=== PATIENT | female | born 1935 | race Caucasian/White ===

== ENCOUNTER 2020-08-22 17:38 | Emergency (ER) | payer MEDICARE ==
[~2020-08-22] VITALS: Ht 160 cm; Wt 60.0 kg
--- NOTE | 2020-08-22 18:00 | NUR ---
LAB AT BS, XR WAITING.
[2020-08-22 18:20] LABS: BASOPHILS % (AUTO) 1 % (0-1); EOSINOPHILS % (AUTO) 2 % (1-7); LYMPHOCYTES % (AUTO) 36 % (22-44); MEAN CORPUSCULAR HEMOGLOBIN 31.7 pg (27.0-34.8); MEAN CORPUSCULAR HGB CONC 33.7 g/dL (32.4-35.8); MEAN PLATELET VOLUME 10.5 fL (7.4-10.4); MONOCYTES % (AUTO) 9 % (2-9); NEUTROPHILS % (AUTO) 52 % (42-75); PLATELET COUNT 169 x10^3/uL (130-400); RED BLOOD COUNT 4.13 x10^6/uL (3.82-5.3); RED CELL DISTRIBUTION WIDTH 12.5 % (9.6-15.2)
--- NOTE | 2020-08-22 18:20 | NUR ---
TASK RN: PT TO ROOM 31 W/ C/O CP AND FATIGUE X 6 WEEKS. PT STATES "SOME POLICE PEOPLE CAME TO MY HOUSE TO CHECK ON ME AND DECIDED I NEEDED TO BE SEEN". PT LIVES HOME ALONE. DENIES SI/HI. PT STATES "I'VE LEARNED TO LIVE WITH THE PAIN". PT RESTING ON GURNEY. NADN. MONITORS IN PLACE. VSS.
[2020-08-22 18:21] LABS: MD NO
[2020-08-22 18:24] LABS: ALANINE AMINOTRANSFERASE 82 U/L (12-78); ALBUMIN 3.7 g/dL (3.4-5.0); ANION GAP 9 mmol/L (5-15); CALCIUM 9.1 mg/dL (8.5-10.1); CHLORIDE 108 mmol/L (98-107); CREATININE 0.82 mg/dL (0.55-1.02)
[2020-08-22 18:29] LABS: ALKALINE PHOSPHATASE 68 U/L (45-117); BILIRUBIN,TOTAL 0.3 mg/dL (0.2-1.0); TOTAL PROTEIN 7.2 g/dL (6.4-8.2); TROPONIN I < 0.015 ng/mL (0.000-0.045)
--- NOTE | 2020-08-22 19:11 | NUR ---
DR RAVI AT . REPORTS "THE (CP) PAIN IS THE SAME PAIN I'VE HAD ALL WEEK" THEN STATES SHE'S HAD THE PAIN FOR 6-8 WEEKS. CARDIAC MONITORING CONTINUING: NSR.
[2020-08-22 19:18] VITALS: BP 137/65
[2020-08-22] MEDS ORDERED: ASPI-515 PO (19:18)
[2020-08-22] MEDS ORDERED: HTN MEDICATION (19:18)
== END 2020-08-22 19:36 | disposition home or self-care (01) ==
LOC: ED 18:00
DX: R07.89 Other chest pain (principal); R53.83 Other fatigue; R94.31 Abnormal electrocardiogram [ECG] [EKG]; I25.10 Atherosclerotic heart disease of native coronary artery without angina pectoris; I25.2 Old myocardial infarction
CPT/HCPCS: 36415; 71045; 80053; 83690; 84484; 85025; 85379; 93005; 99285